=== PATIENT | male | born 1980 | race African-American/Black ===

== ENCOUNTER 2018-09-20 17:39 | Emergency (ER) | payer MEDICAID, OTHER ==
[~2018-09-20] VITALS: Ht 188 cm; Wt 66.0 kg
[2018-09-20 20:55] VITALS: BP 139/100
== END 2018-09-20 20:58 | disposition home or self-care (01) ==
LOC: ED 20:50
DX: S50.312A Abrasion of left elbow, initial encounter (principal); S50.311A Abrasion of right elbow, initial encounter; R55 Syncope and collapse; R51 Headache; F17.200 Nicotine dependence, unspecified, uncomplicated; X58.XXXA Exposure to other specified factors, initial encounter; Y93.89 Activity, other specified; Y92.89 Other specified places as the place of occurrence of the external cause; Y99.8 Other external cause status
CPT/HCPCS: 36415; 70450; 71045; 80048; 80307; 81001; 82040; 83605; 85025; 93005; 99284